=== PATIENT | female | born 1965 ===

== ENCOUNTER 2018-04-13 21:28 | Emergency (ER) | payer OTHER ==
[2018-04-13 22:03] VITALS: BP 137/75; PULSE 85; RESP 20; TEMP 98.5; O2SAT 97
[2018-04-13] MEDS ORDERED: PROPARACAINE/FLUORESCEIN SOD 100 DROP/5 ML BOTTLE ONE (22:38)
--- NOTE | 2018-04-13 23:43 | ED PDOC ---
HPI: Eye Injury/Pain Chief Complaint (Nursing): Eye Problem Additional Complaint(s): 52 y/o female no significant PMH presents to ED c/o right eye pain s/p injury 2 hours ago. Pt was putting on a plastic headband when it hit her in the right eye, causing immediate redness and pain. Currently c/o FB sensation, photophob ia, and pain. Left eye normal. Has not taken any medication for pain. Pt wears glasses. Works in housekeeping. Denies vision changes, left eye pain, headache, SOB, lightheadedness. Past Medical History Reviewed: Historical Data, Nursing Documentation, Vital Signs Vital Signs: Last Vital Signs Temp 98.5 F 04/13/18 22: Pulse 85 04/13/18 22:02 Resp 20 04/13/18 22:02 BP 137/75 04/13/18 22:02 Pulse Ox 97 04/13/18 22:02 - Family History Family History: States: No Known Family Hx - Home Medications Home Medications: Ambulatory Orders Medication Instructions Recorded Dicyclomine [Bentyl] 10 mg PO QID PRN #10 cap 01/14/16 Polymyxin/Trimethoprim Sulfate 1 drop RIGHTEYE Q3H 3 Days #1 04/13/18 [Polytrim Ophth Soln] bottle - Allergies Allergies/Adverse Reactions: Allergies Allergy/AdvReac Type Severity Reaction Status Date / Time No Known Allergies Allergy Verified 01/14/16 14:17 Review of Systems ROS Statement: Except As Marked, All Systems Reviewed And Found Negative Constitutional: Negative for: Fever, Chills Eyes: Positive for: Pain, Conjunctivae Inflammation, Redness. Negative for: Vision Change, Eyelid Inflammation ENT: Negative for: Ear Pain, Nose Pain, Mouth Pain Cardiovascular: Negative for: Chest Pain Respiratory: Negative for: Cough, Shortness of Breath Gastrointestinal: Negative for: Nausea, Vomiting, Abdominal Pain Musculoskeletal: Negative for: Neck Pain, Back Pain Skin: Negative for: Rash Neurological: Negative for: Weakness, Numbness, Change in Speech, Confusion, Altered Mental Status, Headache, Dizziness Physical Exam - Reviewed Nursing Documentation Reviewed: Yes Vital Signs Reviewed: Yes - Physical Exam Appears: Positive for: Well, No Acute Distress Head Exam: Positive for: ATRAUMATIC, NORMAL INSPECTION, NORMOCEPHALIC Skin: Positive for: Normal Color, Warm, DRY Eye Exam: Positive for: EOMI, PERRL, Conjunctival injection (subconjunctival hemorrhage lateral right eye), Other (Small corneal abrasion right eye at 9 o'clock). Negative for: Nystagmus, Periorbital swelling, Periorbital tenderness, Scleral icterus ENT: Positive for: Normal ENT Inspection Neck: Positive for: Normal, Painless ROM Cardiovascular/Chest: Positive for: Regular Rate, Rhythm Respiratory: Positive for: CNT, Normal Breath Sounds Neurologic/Psych: Positive for: Alert, Oriented - ECG O2 Sat by Pulse Oximetry: 97 Medical Decision Making Medical Decision Makin52 y/o female no significant PMH presents to ED c/o right eye pain s/p injury 2 hours ago. Pt was putting on a plastic headband when it hit her in the right eye, causing immediate redness and pain. Currently c/o FB sensation, photophobia, and pain. Left eye normal. Has not taken any medication for pain. Pt wears glasses. Works in housekeeping. Denies vision changes, left eye pain, headache, SOB, lightheadedness. Exam significant for right lateral eye subconjunctival swelling. PERRLA, EOMI. No periorbital swelling. fluoroscein stain: small corneal abrasion right eye 9 o'clock Impression: corneal abrasion Plan: followup with eye doctor within 2 days 1 antibiotic drop per eye every 3 hours for 3 days ibuprofen for pain return to ED if symptoms persist or worsen Disposition - Clinical Impression Clinical Impression: Corneal abrasion - Patient ED Disposition Is Patient to be Admitted: No - Disposition Referrals: Marko Lemos MD [Staff Provider] - Disposition: Routine/Home Disposition Time: 22:00 Condition: IMPROVED Additional Instructions: Place one drop of medicine in right eye every 3 hours for 3 days Take ibuprofen for pain as needed Followup with eye doctor within 2 days Followup with primary within 2 days Return to ED if symptoms persist or worsen Prescriptions: Polymyxin/Trimethoprim Sulfate [Polytrim Ophth Soln] 1 drop RIGHTEYE Q3H 3 Days #1 bottle Instructions: Corneal Abrasion Forms: [facility] (Kinyarwanda), [facility] School/Work Excuse
== END 2018-04-13 23:33 | disposition home or self-care (01) ==
LOC: H.ER 21:28
DX: S05.00XA Injury of conjunctiva and corneal abrasion without foreign body, unspecified eye, initial encounter (principal); Y92.89 Other specified places as the place of occurrence of the external cause